=== PATIENT | female | born 1990 | race American Indian/Alaskan Native ===

== ENCOUNTER 2019-12-17 16:04 | Emergency (ER) | payer MEDICAID ==
[2019-12-17 16:38] LABS: Bacteria,Urine 1+ /HPF (Negative); Bilirubin,Urine NEG (Negative); Blood,Urine NEG (Negative); Color,Urine Yellow (Yellow); Mucus,Urine FEW /HPF; Protein,Urine <15 mg/dL mg/dL (Negative); Urobilinogen,Urine < 2.0 mg/dL (<2.0)
[2019-12-17 16:45] LABS: Amphetamine Screen,Urine Negative; Benzodiazepines Screen,Urine Negative; Cocaine Screen,Urine Negative; Methadone Screen,Urine Negative; Opiate Screen,Urine Negative
--- NOTE | 2019-12-17 16:52 | Emergency Department Report ---
HPI - General Chief Complaint: Psych PUI?: No Time Seen by Provider: 12/17/19 16:19 - HPI HPI: Room 11 The patient is a 29-year-old female brought in by EMS after 911 was called because the patient was wandering on the neighborhood entering strangers homes and". When asked how she ended up in the emergency department the patient states she does not know they just brought her in. Patient denies suicidal homicidal ideation. Patient has rambling speech a lot which is nonsensical. Patient is oriented to time and self only. ED Past Medical Hx - Family History Family history: no significant - Social History Smoking Status: Never Smoker Substance Use Type: None ED Review of Systems ROS: Stated complaint: PSYCH Other details as noted in HPI Constitutional: no symptoms reported Respiratory: no symptoms reported Endocrine: no symptoms reported Psychiatric: denies: homicidal thoughts, suicidal thoughts Physical Exam - Physical Exam Vital Signs: Vital Signs 12/17/19 18:02 Temperature 98.0 F Pulse Rate 100 H Respiratory 16 Rate Blood Pressure 111/70 [Left] O2 Sat by Pulse 97 Oximetry Physical Exam: GENERAL: The patient is well-developed well-nourished female standing in room not appearing to be in acute distress. Patient exhibits rambling speech HEENT: Normocephalic. Atraumatic. Extraocular motions are intact. Patient has moist mucous membranes. NECK: Supple. Trachea midline CHEST/LUNGS: Clear to auscultation. There is no respiratory distress noted. HEART/CARDIOVASCULAR: Regular. There is tachycardia. There is no gallop rub or murmur. ABDOMEN: Abdomen is soft, nontender. Patient has normal bowel sounds. There is no abdominal distention. SKIN: There is no rash. There is no edema. There is no diaphoresis. NEURO: The patient is awake, alert, and oriented to self and year only. The patient is cooperative. The patient has no focal neurologic deficits. The patient has normal speech and gait. MUSCULOSKELETAL: There is no evidence of acute injury. ED Medical Decision Making - Lab Data Result diagrams: 12/17/19 16:31 12/17/19 16:31 Laboratory Tests 12/17/19 12/17/19 12/17/19 16:31 16:31 16:31 WBC 9.5 RBC 4.20 Hgb 13.3 Hct 36.8 MCV 88 MCH 32 MCHC 36 H RDW 14.9 Plt Count 375 Lymph % (Auto) 26.4 [place] % (Auto) 7.9 H Eos % (Auto) 0.2 Baso % (Auto) 1.0 Lymph # 2.5 [place] # 0.7 Eos # 0.0 Baso # 0.1 Seg Neutrophils % 64.5 Seg Neutrophils # 6.1 Sodium 136 L Potassium 4.2 Chloride 102.7 Carbon Dioxide 22 Anion Gap 16 BUN 7 Creatinine 0.9 Estimated GFR > 60 BUN/Creatinine Ratio 8 Glucose 94 Calcium 9.7 HCG, Qual Urine Color Urine Turbidity Urine pH Ur Specific [place] Urine Protein Urine Glucose (UA) Urine Ketones Urine Blood Urine Nitrite Urine Bilirubin Urine Urobilinogen Ur Leukocyte Esterase Urine WBC (Auto) Urine RBC (Auto) U Epithel Cells (Auto) Urine Bacteria (Auto) Urine Mucus Salicylates < 0.3 L Urine Opiates Screen Urine Methadone Screen Acetaminophen Ur Barbiturates Screen Ur Phencyclidine Scrn Ur Amphetamines Screen U Benzodiazepines Scrn Urine Cocaine Screen U Marijuana (THC) Screen Drugs of Abuse Note Plasma/Serum Alcohol 12/17/19 12/17/19 12/17/19 16:31 16:31 16:31 WBC RBC Hgb Hct MCV MCH MCHC RDW Plt Count Lymph % (Auto) [place] % (Auto) Eos % (Auto) Baso % (Auto) Lymph # [place] # Eos # Baso # Seg Neutrophils % Seg Neutrophils # Sodium Potassium Chloride Carbon Dioxide Anion Gap BUN Creatinine Estimated GFR BUN/Creatinine Ratio Glucose Calcium HCG, Qual Negative Urine Color Urine Turbidity Urine pH Ur Specific [place] Urine Protein Urine Glucose (UA) Urine Ketones Urine Blood Urine Nitrite Urine Bilirubin Urine Urobilinogen Ur Leukocyte Esterase Urine WBC (Auto) Urine RBC (Auto) U Epithel Cells (Auto) Urine Bacteria (Auto) Urine Mucus Salicylates Urine Opiates Screen Urine Methadone Screen Acetaminophen 5.0 L Ur Barbiturates Screen Ur Phencyclidine Scrn Ur Amphetamines Screen U Benzodiazepines Scrn Urine Cocaine Screen U Marijuana (THC) Screen Drugs of Abuse Note Plasma/Serum Alcohol < 0.01 12/17/19 12/17/19 Unknown Unknown WBC RBC Hgb Hct MCV MCH MCHC RDW Plt Count Lymph % (Auto) [place] % (Auto) Eos % (Auto) Baso % (Auto) Lymph # [place] # Eos # Baso # Seg Neutrophils % Seg Neutrophils # Sodium Potassium Chloride Carbon Dioxide Anion Gap BUN Creatinine Estimated GFR BUN/Creatinine Ratio Glucose Calcium HCG, Qual Urine Color Yellow Urine Turbidity Clear Urine pH 6.0 Ur Specific [place] 1.012 Urine Protein <15 mg/dl Urine Glucose (UA) Neg Urine Ketones Neg Urine Blood Neg Urine Nitrite Neg Urine Bilirubin Neg Urine Urobilinogen < 2.0 Ur Leukocyte Esterase Neg Urine WBC (Auto) 1.0 Urine RBC (Auto) 2.0 U Epithel Cells (Auto) 2.0 Urine Bacteria (Auto) 1+ Urine Mucus Few Salicylates Urine Opiates Screen Negative Urine Methadone Screen Negative Acetaminophen Ur Barbiturates Screen Negative Ur Phencyclidine Scrn Negative Ur Amphetamines Screen Negative U Benzodiazepines Scrn Negative Urine Cocaine Screen Negative U Marijuana (THC) Screen Positive Drugs of Abuse Note Disclamer Plasma/Serum Alcohol - Differential Diagnosis Schizophrenia, bipolar disorder Critical care attestation.: If time is entered above; I have spent that time in minutes in the direct care of this critically ill patient, excluding procedure time. ED Disposition Clinical Impression: Bizarre behavior, Rambling speech Disposition: [id number]/TX-65 PSY HOSP/PSY UNIT Is pt being admited?: No Does the pt Need Aspirin: No Condition: Stable Time of Disposition: 17:14 (Awaiting acceptance)
[2019-12-17 17:00] LABS: Basophils # (Auto) 0.1 K/mm3 (0.0-0.1); Eosinophils % (Auto) 0.2 % (0.0-4.3); Hematocrit 36.8 % (30.3-42.9); Hemoglobin 13.3 gm/dl (10.1-14.3); Lymphocytes # (Auto) 2.5 K/mm3 (1.2-5.4); Lymphocytes % (Auto) 26.4 % (13.4-35.0); Mean Corpuscular HGB Conc 36 % (30-34); Mean Corpuscular Volume 88 fl (79-97); Monocytes # (Auto) 0.7 K/mm3 (0.0-0.8); Monocytes % (Auto) 7.9 % (0.0-7.3); Platelet Count 375 K/mm3 (140-440); Red Cell Distribution Width 14.9 % (13.2-15.2)
[2019-12-17 17:05] LABS: Cannabinoid Screen,Urine Positive
[2019-12-17 17:07] LABS: BUN/Creatinine Ratio 8; Blood Urea Nitrogen 7 mg/dL (7-17); Calcium 9.7 mg/dL (8.4-10.2); Hemolysis Index 12
[2019-12-17] MEDS: HALOPERIDOL LACTATE 5 MG/1 ML INJ IM PRN (17:34)
[2019-12-17] MEDS: LORazepam 2 MG/ML VIAL IM PRN (17:34)
[2019-12-17] MEDS: diphenhydrAMINE 50 MG/ML VIAL IM PRN (17:34)
--- NOTE | 2019-12-18 15:34 | Consultation ---
History of Present Illness - Reason for Consult Consult date: 12/18/19 Reason for consult: MHE Requesting physician: ALLY GUERRERO - History of Present Psychiatric Illness Per ED Provider: The patient is a 29-year-old female brought in by EMS after 911 was called because the patient was wandering on the neighborhood entering stra ngers homes and". When asked how she ended up in the emergency department the patient states she does not know they just brought her in. Patient denies suicidal homicidal ideation. Patient has rambling speech a lot which is nonsensical. Patient is oriented to time and self only. PSYCH HPI Patient is a single and homeless 29-year-old -British female with past psychiatric history of schizophrenia and unknown medical history who was brought to the emergency department by EMS with chief [facility]. Patient states she is currently at [facility] and states that it is August 2019, she reports she was initially living with her mom and states she does not know why she is here but she thinks she was brought here because she has a tooth ache. Patient rambles, is confused, tantential with incoherent speech and exhibiting word salad with response to internal stimuli being displayed. Concern for acute psychosis PAST PSYCHIATRIC HISTORY Diagnoses: Schizophrenia Suicide attempts or Self-harm behavior: Unavailable Prior psychiatric hospitalizations: Unavailabl e Substance Abuse history: Unavailable Previous psychiatric medications tried: Unavailable Outpatient treatment: Unavailable PAST MEDICAL HISTORY: Unavailable Family Psychiatric History: None reported or documented SOCIAL HISTORY Marital Status: single Living Arrangements: homeless Employment Status: Unavailable Access to guns/weapons: Unavailable Education: 11th grade drop out History of Abuse: Unavailable Legal History: Unavailable REVIEW OF SYSTEMS ROS cannot be reliably obtained from the patient due to her confusion MENTAL STATUS EXAMINATION General Appearance and Behavior: Age appropriate, pgood hygiene, wearing appropriate clothes, lying in bed, poor eye contact, uncooperative polite with questioning. Cooperation: Withdrawn, Isolative,, Psychomotor Behavior: Psychomotor agitation, psychomotor retardation, unremarkable and within normal limits Mood: Good, OK, Anxious, Depressed, Great, I don't know and so-so Affect and affective range: dysthymic Thought Process: Rambling, Pressured, Fragmented and Loose associations Thought Content: Obsessions, Flight of ideas, Illogical, Paranoid Speech: difficulty to understand, abnormalities in production of speech Intellectual Functioning: fair Suicidal Ideation: Denies SI Homicidal Ideation: Denies HI Impulse Control: Impaired Insight and Judgment: Impaired Memory: impaired Attention: Divided attention impaired Orientation: Alert RECOMMENDATIONS Acute psychosis MEDICATIONS: Patient started on Geodon IM 5mg TID Risks, benefits and alternatives of medications discussed with the patient, questions answered and consent obtained from patient. PSYCHOTHERAPY: Supportive psychotherapy provided MEDICAL: Per primary team DELIRIUM PRECAUTIONS: Please re-orient patient frequently, keep lights on during the day, and minimize benzodiazepines and opiates as these medications could worsen patient's confusion. 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 Please contact with any questions and/or concerns. Medications and Allergies Allergies Allergy/AdvReac Type Severity Reaction Status Date / Time No Known Allergies Allergy Unverified 12/17/19 17:01 Home Medications Medication Instructions Recorded Confirmed Last Taken Type ARIPiprazole [Abilify] 50 mg PO DAILY 12/17/19 12/17/19 Unknown History Benztropine [Cogentin] 1 mg PO BID 12/17/19 12/17/[address] [DepAlfonso WILCOX] 500 mg PO BID 12/17/19 12/17/19 Unknown History Paliperidone Palmitate [Invega 234 mg IM QMONTH 12/17/19 12/17/19 Unknown History Sustenna] Trazodone HCl 150 mg PO HS 12/17/19 12/17/19 Unknown History fluPHENAZine HCl [fluPHENAZine] 5 mg PO BID 12/17/19 12/17/19 Unknown History hydrOXYzine HCL [Atarax] 25 mg PO TID 12/17/19 12/17/19 Unknown History Active Meds: Active Medications Diphenhydramine HCl (Benadryl) 50 mg IM Q6H PRN PRN Reason: Agitation Last Admin: 12/17/19 17:34 Dose: 50 mg Documented by: Haloperidol Lactate (Haldol) 10 mg IM Q8H PRN PRN Reason: Agitation Last Admin: 12/17/19 17:34 Dose: 10 mg Documented by: Lorazepam (Ativan) 2 mg IM Q8H PRN PRN Reason: Agitation Last Admin: 12/17/19 17:34 Dose: 2 mg Documented by: Mental Status Exam - Vital signs Last Vital Signs Temp 98.5 F 12/18/19 01:58 Pulse 82 12/18/19 01:58 Resp 16 12/18/19 01:58 BP 122/63 12/18/19 01:58 Pulse Ox 100 12/18/19 01:58 Results Result Diagrams: 12/17/19 16:31 12/17/19 16:31 Abnormal lab results 12/17/19 12/17/19 12/17/19 Range/Units 16:31 16:31 16:31 MCHC 36 H (30-34) % [place] % (Auto) 7.9 H (0.0-7.3) % Sodium 136 L (137-145) mmol/L Salicylates < 0.3 L (2.8-20.0) mg/dL Acetaminophen (10.0-30.0) ug/mL 12/17/19 Range/Units 16:31 MCHC (30-34) % [place] % (Auto) (0.0-7.3) % Sodium (137-145) mmol/L Salicylates (2.8-20.0) mg/dL Acetaminophen 5.0 L (10.0-30.0) ug/mL All other labs normal.
[2019-12-18] MEDS: ZIPRASIDONE MESYLATE 20 MG VIAL IM SCH (19:58)
[2019-12-18] MEDS: traZODone 50 MG TAB PO SCH (22:31)
[2019-12-18] MEDS: OMEGA-3 FATTY ACIDS/FISH OIL 1 GRAM CAP PO SCH (22:32)
[2019-12-19] MEDS: ZIPRASIDONE MESYLATE 20 MG VIAL IM SCH ×3 (09:16→22:53)
[2019-12-19] MEDS: OMEGA-3 FATTY ACIDS/FISH OIL 1 GRAM CAP PO SCH ×2 (09:34→22:51)
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
[2019-12-19] MEDS ORDERED: WATER FOR INJ Sterile (PF) 10 ML ONE (22:21)
[2019-12-19] MEDS: traZODone 50 MG TAB PO SCH (22:49)
[2019-12-19] MEDS: diphenhydrAMINE 50 MG/ML VIAL IM PRN (22:53)
[2019-12-20] MEDS: LORazepam 2 MG/ML VIAL IM PRN (04:36)
[2019-12-20] MEDS: HALOPERIDOL LACTATE 5 MG/1 ML INJ IM PRN (04:37)
--- NOTE | 2019-12-20 10:45 | Progress Note ---
Subjective - Reason for Consult Consult date: 12/20/19 Reason for consult: MHE Requesting physician: ALLY GUERRERO - Chief Complaint Chief complaint: Psych HPI Patient seen in seclusion today, says she is feeling better, no food trash seen. Reports sleeping good, voiced desire to be taken out of seclusion, requested for self care resources to use and grabbed her food and started eating. REVIEW OF SYSTEMS ROS cannot be reliably obtained from the patient due to her confusion MENTAL STATUS EXAMINATION General Appearance and Behavior: Age appropriate, fair hygiene, wearing ap propriate clothes, lying in bed, good eye contact, cooperative polite with questioning. Cooperation: Engaged and cooperative Psychomotor Behavior: unremarkable and within normal limits Mood: "I feel better" Affect and affective range: congruent with mood Thought Process: Logical Thought Content: Within reality Speech: normal rate and volume Intellectual Functioning: improved Suicidal Ideation: Denies SI Homicidal Ideation: Denies HI Impulse Control: Impaired Insight and Judgment: Impaired Memory: impaired Attention: Divided attention impaired Orientation: Alert and oriented RECOMMENDATIONS Acute psychosis MEDICATIONS: Will switch from Geodon IM to Seroquel PO Risks, benefits and alternatives of medications discussed with the patient, q uestions answered and consent obtained from patient. PSYCHOTHERAPY: Supportive psychotherapy provided MEDICAL: Per primary team DELIRIUM PRECAUTIONS: Please re-orient patient frequently, keep lights on during the day, and minimize benzodiazepines and opiates as these medications could worsen patient's confusion. 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 Please contact with any questions and/or concerns. Mental Status Exam - Vital signs Last Vital Signs Temp 98.6 F 12/20/19 01:20 Pulse 90 12/20/19 01:20 Resp 20 12/20/19 01:20 BP 123/69 12/20/19 01:20 Pulse Ox 98 12/20/19 01:20
[2019-12-20] MEDS: QUEtiapine 25 MG TAB PO SCH (12:07)
[2019-12-20] MEDS: OMEGA-3 FATTY ACIDS/FISH OIL 1 GRAM CAP PO SCH (12:07)
[2019-12-21] MEDS: OMEGA-3 FATTY ACIDS/FISH OIL 1 GRAM CAP PO SCH ×3 (00:26→22:24)
[2019-12-21] MEDS: traZODone 50 MG TAB PO SCH ×2 (00:26→22:23)
[2019-12-21] MEDS: QUEtiapine 25 MG TAB PO SCH ×3 (00:26→22:24)
[2019-12-21] MEDS: ZIPRASIDONE MESYLATE 20 MG VIAL IM SCH (10:30)
[2019-12-21] MEDS: HALOPERIDOL LACTATE 5 MG/1 ML INJ IM PRN (11:59)
--- NOTE | 2019-12-21 14:09 | Progress Note ---
Subjective - Reason for Consult Consult date: 12/21/19 Reason for consult: AMS - Chief Complaint Chief complaint: The patient's medical record was reviewed and the patient's progress was discussed with the nursing staff. The nurse and sitter caring for the patient todays, states she's been talking to herself, cursing people out who are not there and pacing back and forth. During my interview with the patient today, she is in the seclusion room lying down. She is a/o x 3. She says she "doesn't remember how I got to the hospital." She she denies SI/HI or hallucinations of any kind. When asking the patient about her talking to herself, "she yea I give my self pep talks out lout, and I've been pacing a lot." She describes her mood as "I guess great." REVIEW OF SYSTEMS Constitutional: Negative for weight loss ENT: Negative for stridor Respiratory: Negative for cough or hemoptysis All other systems reviewed and are negative MENTAL STATUS EXAMINATION General Appearance and Behavior: Age appropriate, Mood: "I guess great." Affect and affective range: congruent with mood Thought Process: Goal directed Speech: Normal volume and pace Thought Content Suicidal Ideation: Denies SI Homicidal Ideation: Denies HI Hallucinations: Auditory Delusions: non elicited Memory/Cognition: Limited Attention: Normal RECOMMENDATIONS Acute psychosis MEDICATIONS: Continue current regimen Risks, benefits and alternatives of medications discussed with the patient, questions answered and consent obtained from patient. PSYCHOTHERAPY: Supportive psychotherapy provided MEDICAL: Per primary team DELIRIUM PRECAUTIONS: Please re-orient patient frequently, keep lights on during the day, and minimize benzodiazepines and opiates as these medications could worsen patient's confusion. 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 Please contact with any questions and/or concerns. Mental Status Exam - Vital signs Last Vital Signs Temp 97.9 F 12/21/19 09:11 Pulse 89 12/21/19 09:11 Resp 20 12/21/19 09:11 BP 110/58 12/21/19 09:11 Pulse Ox 99 12/21/19 09:11
[2019-12-22] MEDS: OMEGA-3 FATTY ACIDS/FISH OIL 1 GRAM CAP PO SCH (09:34)
[2019-12-22] MEDS: QUEtiapine 25 MG TAB PO SCH (09:34)
--- NOTE | 2019-12-22 11:53 | Progress Note ---
Subjective - Reason for Consult Consult date: 12/22/19 Reason for consult: AMS - Chief Complaint Chief complaint: The patient's medical record was reviewed and the patient's progress was discussed with the nursing staff. During my interview with the patient today, she is in the seclusion room lying down. She is a/o x 3. She is calm and cooperative. She says her mood is "good." She then says, "a lot better since when first coming here." She denies SI/HI. She denies hallucinations of any kind. The patient also denies any fear or feelings of endangerment. REVIEW OF SYSTEMS Constitutional: Negative for weight loss ENT: Negative for stridor Respiratory: Negative for cough or hemoptysis All other systems reviewed and are negative MENTAL STATUS EXAMINATION General Appearance and Behavior: Age appropriate Mood: "good" Affect and affective range: congruent with mood Thought Process: Goal directed Speech: Normal volume and pace Thought Content Suicidal Ideation: Denies SI Homicidal Ideation: Denies HI Hallucinations: Denies Delusions: non elicited Memory/Cognition: Limited Attention: Normal RECOMMENDATIONS Acute psychosis MEDICATIONS: d/c 1013 Scripts Seroquel 50mg po BID Trazodone 50mg po qhs Risks, benefits and alternatives of medications discussed with the patient, questions answered and consent obtained from patient. PSYCHOTHERAPY: Supportive psychotherapy provided MEDICAL: Per primary team DELIRIUM PRECAUTIONS: Please re-orient patient frequently, keep lights on during the day, and minimize benzodiazepines and opiates as these medications could worsen patient's confusion. 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 Can discharge home once medically clear Will sign off. Thank you for the consult. Please contact with any questions and/or concerns. Mental Status Exam - Vital signs Last Vital Signs Temp 98.4 F 12/22/19 02:21 Pulse 71 12/22/19 02:21 Resp 18 12/22/19 09:46 BP 99/61 12/22/19 02:21 Pulse Ox 97 12/22/19 02:21
[2019-12-22 12:45] VITALS: BP 129/87
== END 2019-12-22 12:47 | disposition home or self-care (01) ==
LOC: ED 16:04
DX: R51 Headache (principal)
CPT/HCPCS: 36415; 80048; 80307; 81001; 84703; 85025; 96372; 99284; J1200; J1630; J2060; J3486; 80320; G0480

== ENCOUNTER 2022-02-09 17:36 | Emergency (ER) | payer SELFPAY ==
[2022-02-09] MEDS ORDERED: ZIPRASIDONE MESYLATE 20 MG VIAL IM ONE (19:26)
[2022-02-09] MEDS ORDERED: diphenhydrAMINE 50 MG/ML VIAL ONE (19:30)
[2022-02-09] MEDS ORDERED: HALOPERIDOL LACTATE 5 MG/1 ML INJ ONE (19:30)
[2022-02-09] MEDS ORDERED: HALOPERIDOL LACTATE 5 MG/1 ML INJ IM ONE (19:35)
[2022-02-09] MEDS ORDERED: diphenhydrAMINE 25 MG CAP PO ONE (19:36)
[2022-02-09 20:37] LABS: Basophils # (Auto) 0.1 K/mm3 (0.0-0.1); Basophils % (Auto) 0.6 % (0.0-1.8); Eosinophils % (Auto) 0.2 % (0.0-4.3); Hemoglobin 14.6 gm/dl (10.1-14.3); Lymphocytes # (Auto) 2.9 K/mm3 (1.2-5.4); Lymphocytes % (Auto) 26.7 % (13.4-35.0); Mean Corpuscular HGB Conc 35 % (30-34); Mean Corpuscular Volume 88 fl (79-97); Monocytes # (Auto) 0.5 K/mm3 (0.0-0.8); Monocytes % (Auto) 5.1 % (0.0-7.3); Platelet Count 295 K/mm3 (140-440); Red Blood Count 4.76 M/mm3 (3.65-5.03); Red Cell Distribution Width 14.3 % (13.2-15.2)
[2022-02-09 20:39] LABS: BUN/Creatinine Ratio 6; Blood Urea Nitrogen 5 mg/dL (7-17); Calcium 9.4 mg/dL (8.4-10.2); Hemolysis Index 12
--- NOTE | 2022-02-09 22:27 | Emergency Department Report ---
ED Psych HPI - General Chief Complaint: Psych Stated Complaint: MENTAL EVAL Time Seen by Provider: 02/09/22 19:36 Source: patient Mode of arrival: Ambulatory - History of Present Illness Initial Comments: Patient is a 31-year-old female brought in by EMS for psychiatric evaluation. Upon arrival she is screaming and yelling loudly beating on the song. Reports voices in her head telling her to hurt her self. Geodon, Haldol and Benadryl ordered for extreme agitation. - Related Data Home Medications Medication Instructions Recorded Confirmed Last Taken ARIPiprazole [Abilify] 50 mg PO DAILY 12/17/19 12/17/19 Unknown Benztropine [Cogentin] 1 mg PO BID 12/17/19 12/17/19 Unknown Divalproex [Francia WILCOX] 500 mg PO BID 12/17/19 12/17/19 Unknown Paliperidone Palmitate [Invega 234 mg IM QMONTH 12/17/19 12/17/19 Unknown Sustenna] Trazodone HCl 150 mg PO HS 12/17/19 12/17/19 Unknown fluPHENAZine HCl [fluPHENAZine] 5 mg PO BID 12/17/19 12/17/19 Unknown hydrOXYzine HCL [Atarax] 25 mg PO TID 12/17/19 12/17/19 Unknown Previous Rx's Medication Instructions Recorded Last Taken Type Quetiapine Fumarate [SEROquel] 50 mg PO BID #60 tab 12/22/19 Unknown Rx traZODone [Desyrel] 50 mg PO QHS #30 tab 12/22/[address] Ev WILCOX] 250 mg PO BID #60 tablet 02/12/22 Unknown Rx Paliperidone Palmitate [Invega 156 mg IM QMONTH #1 syr 02/12/22 Unknown Rx Sustenna] risperiDONE [RisperDAL] 1 mg PO BID #60 02/12/22 Unknown Rx Allergies Allergy/AdvReac Type Severity Reaction Status Date / Time No Known Allergies Allergy Verified 02/09/22 18:19 ED Review of Systems ROS: Stated complaint: MENTAL EVAL Other details as noted in HPI Comment: Unobtainable due to pts medical conditions ED Past Medical Hx - Past Medical History Previous Medical History?: Yes Additional medical history: schizophrenia - Social History Smoking Status: Never Smoker Substance Use Type: None - Medications Home Medications: Home Medications Medication Instructions Recorded Confirmed Last Taken Type ARIPiprazole [Abilify] 50 mg PO DAILY 12/17/19 12/17/19 Unknown History Benztropine [Cogentin] 1 mg PO BID 12/17/19 12/17/19 Unknown History Divalproex [Francia WILCOX] 500 mg PO BID 12/17/19 12/17/19 Unknown History Paliperidone Palmitate [Invega 234 mg IM QMONTH 12/17/19 12/17/19 Unknown History Sustenna] Trazodone HCl 150 mg PO HS 12/17/19 12/17/19 Unknown History fluPHENAZine HCl [fluPHENAZine] 5 mg PO BID 12/17/19 12/17/19 Unknown History hydrOXYzine HCL [Atarax] 25 mg PO TID 12/17/19 12/17/19 Unknown History Quetiapine Fumarate [SEROquel] 50 mg PO BID #60 tab 12/22/19 Unknown Rx traZODone [Desyrel] 50 mg PO QHS #30 tab 12/22/19 Unknown Rx Divalproex [Francia WILCOX] 250 mg PO BID #60 tablet 02/12/22 Unknown Rx Paliperidone Palmitate [Invega 156 mg IM QMONTH #1 syr 02/12/22 Unknown Rx Sustenna] risperiDONE [RisperDAL] 1 mg PO BID #60 02/12/22 Unknown Rx ED Physical Exam - General Limitations: No Limitations General appearance: alert, other (Agitated) - Head Head exam: Present: atraumatic, normocephalic - Respiratory Respiratory exam: Present: normal lung sounds bilaterally. Absent: respiratory distress - Cardiovascular Cardiovascular Exam: Present: regular rate, normal rhythm, normal heart sounds - GI/Abdominal GI/Abdominal exam: Present: soft. Absent: distended, tenderness - Neurological Exam Neurological exam: Present: alert, oriented X3 - Psychiatric Psychiatric exam: Present: agitated, manic - Skin Skin exam: Present: warm, dry, intact, normal color ED Course Vital Signs 02/09/22 02/10/22 02/10/22 18:15 10:49 21:43 Temperature 98.9 F 97.9 F Pulse Rate 103 H 86 Respiratory 18 18 Rate Blood Pressure 115/79 130/80 [Right] O2 Sat by Pulse 100 97 97 Oximetry 02/11/22 02/11/22 02/12/22 10:00 20:16 01:00 Temperature 98.1 F 98.3 F Pulse Rate 96 H 74 Respiratory 17 16 Rate Blood Pressure 106/77 113/84 [Right] O2 Sat by Pulse 98 100 100 Oximetry 02/12/22 02/12/22 02/12/22 02:35 08:20 10:29 Temperature 98.6 F 98.6 F Pulse Rate 67 76 Respiratory 16 18 Rate Blood Pressure 101/59 115/74 [Right] O2 Sat by Pulse 95 98 97 Oximetry ED Medical Decision Making - Lab Data Result diagrams: 02/09/22 19:58 02/09/22 19:58 Critical care attestation.: If time is entered above; I have spent that time in minutes in the direct care of this critically ill patient, excluding procedure time. ED Disposition Clinical Impression: Psychosis Disposition: HOME / SELF CARE / HOMELESS Is pt being admited?: No Condition: Stable Additional Instructions: OUTPATIENT MENTAL HEALTH RESOURCES [facility], [facility] Harry Parks MD: [address], [address] [facility] [address] [place] [address] [place], [place] [id number] [facility] Psychotherapy: [employer] [address] [place] [address] [place] [address] [phone] [facility]: [facility] Healthcare: [address] [facility] [address] [place] [address] [place] [address] [facility] [id number] [facility]: Evaristo Cardoso MD: [address] [facility] [address] [facility] [id number] [facility]: [address] [place], [place] [id number] [phone] [place] CRISIS AND ACCESS LINE: Prescriptions: Paliperidone Palmitate [Invega Sustenna] 156 mg IM QMONTH #1 syr Divalproex [DepAlfonso WILCOX] 250 mg PO BID #60 tablet risperiDONE [RisperDAL] 1 mg PO BID #60 Referrals: PRIMARY CARE, [Primary Care Provider] - 3-5 Days
[2022-02-10] MEDS ORDERED: diphenhydrAMINE 50 MG/ML VIAL IM ONE (07:49)
[2022-02-10] MEDS ORDERED: HALOPERIDOL LACTATE 5 MG/1 ML INJ IM ONE (07:49)
[2022-02-10 08:08] LABS: Amphetamine Screen,Urine Negative; Benzodiazepines Screen,Urine Negative; Cocaine Screen,Urine Negative; Methadone Screen,Urine Negative; Opiate Screen,Urine Negative
[2022-02-10 08:33] LABS: Color,Urine Yellow (Yellow)
[2022-02-10 08:35] LABS: Cannabinoid Screen,Urine Positive
--- NOTE | 2022-02-10 08:38 | Emergency Department Report ---
Blank Doc - Documentation Documentation: 25yo F p/w psychosis. No overnight events per review of EHR. However this mor alysa, the psychologist clinical reports that the pt is agitated, yelling, and screaming, and is not redirectable here. Pt ordered for haldol and benadryl IM. VSS She continues to remain a 1013 psychiatric hold. The pt is awaiting formal placement by psychiatry.
[2022-02-10 08:45] LABS: Amorphous Crystals,Urine Few; Bacteria,Urine 1+ /HPF (Negative); Hyaline Casts,Urine 4 /LPF; Mucus,Urine 1+ /HPF; Trichomonas,Urine 3+ /HPF
--- NOTE | 2022-02-10 13:25 | Consultation ---
History of Present Illness - Reason for Consult Consult date: 02/10/22 Reason for consult: mental health evaluation - History of Present Psychiatric Illness Nurse note: Received patient in room 13, patient let out to the bathroom. While in bathroom patient started yelling and screaming. Patient came out of the bathroom and threw her urine cup on the floor. Patient put back in room 13 by security, still yelling and screaming and throwing her food up against the song. made aware with IM orders. Patient is a 31 year old female with previous psychiatric history of schizophrenia who brought to ED by EMS for psych evaluation. Patient was seen today and cooperative throughout the interview. Chart review shows patient received haldol 5 mg IM about 4 hours before this interview. Patient reports "not doing well at all." Patient reports her mother, who was her bundle tier, 1 year and 3 months ago and patient has been homeless since then. Patient reports previously taking depakote 500 mg, invega sustenna "721" mg, and nuvigil 3 months ago. Patient reports hearing negative voices saying "get your ass out of your bed, I'm going to beat your ass," and "the food in the store across the street is free, go get some." Patient denies previous suicide attempts denies denies suicidal ideation and homicidal ideation. PAST PSYCHIATRIC HISTORY: Diagnoses: Schizophrenia Suicide attempts or Self-harm behavior: Denies Prior psychiatric hospitalizations: Yes Substance Abuse history: Tobacco Previous psychiatric medications tried: depakote, invega, nuvigil Outpatient treatment: Yes SOCIAL HISTORY Marital Status: Single Living Arrangements: Homeless Employment Status: Disabled Access to guns/weapons: Denies History of Abuse: Denies Legal History: Denies REVIEW OF SYSTEMS Constitutional: Negative for weight loss ENT: Negative for stridor Respiratory: Negative for cough or hemoptysis All other systems reviewed and are negative MENTAL STATUS EXAMINATION General Appearance and Behavior: Age appropriate, wearing appropriate clothes, cooperative, irritable Cooperation: cooperative Psychomotor Behavior: Psychomotor normal Mood: "not doing well at all" Affect and affective range: anxious, agitated, labile Thought Process: disorganized, circumstantial Thought Content: disoriented, hallucinations Speech: Normal volume, normal rate and rhythm Suicidal Ideation: Denies Homicidal Ideation: Denies Hallucination: Auditory command hallucinations Delusions: none elicited Impulse Control: Impaired Insight and Judgment: Limited Memory: Poor Attention: distracted Orientation: Alert Diagnoses: Schizophrenia, acute psychosis Treatment Plan 1013 Risperidone 1 mg BID Vistaril 25 mg q6h Haldol 5 mg IM q6h PRN for severe agitation PSYCHOTHERAPY: Supportive psychotherapy provided MEDICAL: Per primary team DELIRIUM PRECAUTIONS: Please re-orient patient frequently, keep lights on during the day, and minimize benzodiazepines and opiates as these medications could worsen patient's confusion. MANAGER PLUMBING: Defer to primary DISPOSITION: Do recommend acute inpatient psychiatric hospitalization at this time. FOLLOW-UP: Will follow Thank you for the consult. Please contact with any questions and/or concerns. Case staffed with Dr. Becky Ramos. Legal Status: Involuntary,101 Reaction to Hospitalization: Accepting Medications and Allergies Allergies Allergy/AdvReac Type Severity Reaction Status Date / Time No Known Allergies Allergy Verified 02/09/22 18:19 Home Medications Medication Instructions Recorded Confirmed Last Taken Type ARIPiprazole [Abilify] 50 mg PO DAILY 12/17/19 12/17/19 Unknown History Benztropine [Cogentin] 1 mg PO BID 12/17/19 12/17/[address] [DepaKOTE DR] 500 mg PO BID 12/17/19 12/17/19 Unknown History Paliperidone Palmitate [Invega 234 mg IM QMONTH 12/17/19 12/17/19 Unknown His tory Sustenna] Trazodone HCl 150 mg PO HS 12/17/19 12/17/19 Unknown History fluPHENAZine HCl [fluPHENAZine] 5 mg PO BID 12/17/19 12/17/19 Unknown History hydrOXYzine HCL [Atarax] 25 mg PO TID 12/17/19 12/17/19 Unknown History Quetiapine Fumarate [SEROquel] 50 mg PO BID #60 tab 12/22/19 Unknown Rx traZODone [Desyrel] 50 mg PO QHS #30 tab 12/22/19 Unknown Rx Mental Status Exam - Vital signs Last Vital Signs Temp 98.9 F 02/09/22 18:15 Pulse 103 H 02/09/22 18:15 Resp 18 02/09/22 18:15 BP 115/79 02/09/22 18:15 Pulse Ox 97 02/10/22 10:49 Results Result Diagrams: 02/09/22 19:58 09/20/22 19:58 Abnormal lab results 02/09/22 02/09/22 02/09/22 Range/Units 19:58 19:58 19:58 Hgb 14.6 H (10.1-14.3) gm/dl MCHC 35 H (30-34) % BUN 5 L (7-17) mg/dL Urine WBC (Auto) (0.0-6.0) /HPF U Epithel Cells (Auto) (0-13.0) /HPF Salicylates < 0.3 L (2.8-20.0) mg/dL Acetaminophen (10.0-30.0) ug/mL 02/09/22 02/10/22 Range/Units 19:58 Unknown Hgb (10.1-14.3) gm/dl MCHC (30-34) % BUN (7-17) mg/dL Urine WBC (Auto) 15.0 H (0.0-6.0) /HPF U Epithel Cells (Auto) 73.0 H (0-13.0) /HPF Salicylates (2.8-20.0) mg/dL Acetaminophen 5.0 L (10.0-30.0) ug/mL All other labs normal.
[2022-02-10] MEDS ORDERED: HALOPERIDOL LACTATE 5 MG/1 ML INJ IM PRN (13:28)
[2022-02-10] MEDS: hydrOXYzine PAMOATE 25 MG CAP PO SCH ×2 (14:47→23:00)
[2022-02-10] MEDS: risperiDONE 1 MG TAB PO SCH ×2 (14:47→23:00)
[2022-02-10] MEDS ORDERED: ZIPRASIDONE MESYLATE 20 MG VIAL IM ONE (17:56)
--- NOTE | 2022-02-11 07:28 | Event Note ---
Date: 02/11/22 25yo F p/w psychosis. No overnight events per discussion with overnight nursing staff. . VSS She continues to remain a 1013 psychiatric hold. The pt is awaiting formal placement by psychiatry.
[2022-02-11] MEDS: hydrOXYzine PAMOATE 25 MG CAP PO SCH ×2 (09:05→16:04)
[2022-02-11] MEDS: risperiDONE 1 MG TAB PO SCH (10:03)
--- NOTE | 2022-02-11 21:11 | Progress Note ---
Subjective - Reason for Consult Consult date: 02/11/22 Reason for consult: mental health evaluation - Chief Complaint Chief complaint: 02/11: Note review shows patient received haldol 5 mg IM hours prior to interview. Patient was seen today. Patient was alert and oriented x2 and cooperative throughout the interview. Patient requests she leave. Patient reports if she left she would be on her best behavior. Patient reports when she was brought to the hospital she was just upset about her mom passing away 1 year prior. Patient reports when she discharges she wants to go to [address] [place] [address] where she lives with her brother and his girlfriend. Patient reports feeling good and denies issues with appetite or sleep. Patient denies suicidal ideation, homicidal ideation, and hallucinations. 02/10: Patient is a 31 year old female with previous psychiatric history of schizophrenia who brought to ED by EMS for psych evaluation. Patient was seen today and cooperative throughout the interview. Chart review shows patient received haldol 5 mg IM about 4 hours before this interview. Patient reports "not doing well at all." Patient reports her mother, who was her process excellence manager, 1 year and 3 months ago and patient has been homeless since then. Patient reports previously taking depakote 500 mg, invega sustenna "721" mg, and nuvigil 3 months ago. Patient reports hearing negative voices saying "get your ass out of your bed, I'm going to beat your ass," and "the food in the store across the street is free, go get some." Patient denies previous suicide attempts denies denies suicidal ideation and homicidal ideation. MENTAL STATUS EXAMINATION General Appearance and Behavior: Age appropriate, wearing appropriate clothes, good eye contact Cooperation: cooperative Psychomotor Behavior: Psychomotor normal Mood: good Affect and affective range: congruent with stated mood, calm Thought Process: goal-oriented Thought Content: reality-based Speech: Normal volume, normal rate and rhythm Suicidal Ideation: Denies Homicidal Ideation: Denies Hallucination: Denies Delusions: none elicited Impulse Control: Impaired Insight and Judgment: Limited Memory: Fair Attention: Attentive Orientation: Alert, oriented x2 Diagnoses: Schizophrenia Treatment Plan 1013 Risperidone 1 mg BID Vistaril 25 mg q6h Haldol 5 mg IM q6h PRN for severe agitation PSYCHOTHERAPY: Supportive psychotherapy provided MEDICAL: Per primary team DELIRIUM PRECAUTIONS: Please re-orient patient frequently, keep lights on during the day, and minimize benzodiazepines and opiates as these medications could worsen patient's confusion. DISPOSITION: Do recommend acute inpatient psychiatric hospitalization at this time. Will likely recommend continuing treatment outpatient tomorrow pending uneventful overnight and agitation and mentation continues to improve. FOLLOW-UP: Will follow Thank you for the consult. Please contact with any questions and/or concerns. Case staffed with Dr. Becky Ramos. Mental Status Exam - Vital signs Last Vital Signs Temp 98.1 F 02/11/22 10:00 Pulse 96 H 02/11/22 10:00 Resp 17 02/11/22 10:00 BP 106/77 02/11/22 10:00 Pulse Ox 98 02/11/22 10:00
[2022-02-12 08:21] VITALS: BP 115/74
[2022-02-12] MEDS: hydrOXYzine PAMOATE 25 MG CAP PO SCH (09:38)
[2022-02-12] MEDS: risperiDONE 1 MG TAB PO SCH (09:55)
--- NOTE | 2022-02-12 10:57 | Progress Note ---
Subjective - Reason for Consult Consult date: 02/12/22 Reason for consult: depression - Chief Complaint Chief complaint: The patient was seen today. She is calm and cooperative. The patient says when she came in she had thoughts of her mom passing. She says "I was just so sad." The patient now says "I promise, I feel a lot better now. Maybe cause I been on the meds." The patient denies SI/HI or hallucinations of any kind. She says she lives with family and can go back there. The patient says she takes Depakote, and Invega sustenna but states she hasn't had the invega in about 3 months. REVIEW OF SYSTEMS Constitutional: Negative for weight loss ENT: Negative for stridor Respiratory: Negative for cough or hemoptysis All other systems reviewed and are negative MENTAL STATUS EXAMINATION General Appearance and Behavior: Age appropriate, wearing appropriate clothes, cooperative, irritable Cooperation: cooperative Psychomotor Behavior: Psychomotor normal Mood: "not doing well at all" Affect and affective range: anxious, agitated, labile Thought Process: disorganized, circumstantial Thought Content: disoriented, hallucinations Speech: Normal volume, normal rate and rhythm Suicidal Ideation: Denies Homicidal Ideation: Denies Hallucination: Auditory command hallucinations Delusions: none elicited Impulse Control: Impaired Insight and Judgment: Limited Memory: Poor Attention: distracted Orientation: Alert Diagnoses: Schizophrenia Treatment Plan d/c 1013 Invega Sustenna 234mg IM x [address] 250mg po x 1 prior to leaving Depakote DR 250mg po BID Risperidone 1 mg BID Invega Sustenna 156mg IM monthly PSYCHOTHERAPY: Supportive psychotherapy provided MEDICAL: Per primary team DELIRIUM PRECAUTIONS: Please re-orient patient frequently, keep lights on during the day, and minimize benzodiazepines and opiates as these medications could worsen patient's confusion. 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 FOLLOW-UP: will sign off Thank you for the consult. Please contact with any questions and/or concerns. Case staffed with Dr. Becky Ramos. Mental Status Exam - Vital signs Last Vital Signs Temp 98.6 F 02/12/22 08:20 Pulse 76 02/12/22 08:20 Resp 18 02/12/22 08:20 BP 115/74 02/12/22 08:20 Pulse Ox 97 02/12/22 10:29
[2022-02-12] MEDS ORDERED: PALIPERIDONE PALMITATE 234 MG/1.5 ML SYRINGE IM NR (11:30)
[2022-02-12] MEDS ORDERED: DIVALPROEX DR 250 MG TAB PO NR (11:30)
--- NOTE | 2022-02-12 13:54 | Emergency Department Report ---
Blank Doc - Documentation Documentation: Patient history of psychosis patient seen by psychiatry today. Patient has no acute medical condition at this time vital signs are stable.
== END 2022-02-12 14:39 | disposition home or self-care (01) ==
LOC: ED 17:36
DX: F29 Unspecified psychosis not due to a substance or known physiological condition (principal); Z20.822 Contact with and (suspected) exposure to COVID-19; F20.9 Schizophrenia, unspecified; Z79.899 Other long term (current) drug therapy
CPT/HCPCS: 36415; 80048; 80307; 81001; 84443; 84703; 85025; 87086; 96372; 99284; J1200; J1630; J2426; J3486; U0003; 80320; G0480